=== PATIENT | female | born 2000 | race Caucasian/White ===

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

== ENCOUNTER 2021-12-07 23:38 | Inpatient (IN) | payer OTHER, BC ==
[~2021-12-07] VITALS: Ht 175.3 cm; Wt 121.6 kg
--- NOTE | 2021-12-08 07:57 | PR ---
[facility] [address] [facility] [place] [address] Signed Progress Notes IP Datetime Report Generated by CPN: 12/08/2021 07:57 PROGRESS NOTES: [id number] Procedures: Artificial ROM Plan: Continue Present Management; Anticipate Vaginal Delivery VITAL SIGNS: [id number] Vital Signs: Reviewed; Within Normal Limits EXAM: [id number] Dilatation: 3.0 Effacement: 70 Station: -2 Contractions: irregular MEMBRANES: [id number] Membranes Status: Ruptured Comments: Would like Epidural later; ordered. FETUS A: [id number] FHR Baseline: 125 Variability: Moderate 6-25bpm Accelerations: 15X15 FETUS B: [id number] Signing Physician: Mikel Saldivar MD Copies: ~ *Electronically Signed* 12/08/21 0757 MIKEL SALDIVAR MD PATIENT NAME: KEL BURNETTE PROGRESS NOTE DATE OF : 00 PHYSICIAN: MIKEL SALDIVAR MD RPT #: [id number] REPORT IS CONFIDENTIAL AND NOT TO BE RELEASED WITHOUT AUTHORIZATION
--- NOTE | 2021-12-08 15:01 | PR ---
[facility] [address] [facility] [place], [place] [address] Signed Progress Notes IP Datetime Report Generated by CPN: 12/08/2021 15:01 PROGRESS NOTES: [id number] Impression: Normal Progression of Labor Procedures: Intrauterine Pressure Catheter; Scalp Electrode Plan: Continue Present Management; Anticipate Vaginal Delivery VITAL SIGNS: [id number] Vital Signs: Reviewed; Within Normal Limits EXAM: [id number] Dilatation: 7.0 Effacement: 80 Station: -2 Contractions: irregular MEMBRANES: [id number] Membranes Status: Ruptured Comments: Comfortable with Epiidural; contractions seem to be spacing out; IUPC inserted, may need Pitocin augmentation FETUS A: [id number] FHR Baseline: 125 Variability: Moderate 6-25bpm Accelerations: 15X15 FETUS B: [id number] Signing Physician: Mikel Saldivar MD Copies: ~ *Electronically Signed* 12/08/21 1501 MIKEL SALDIVAR MD PATIENT NAME: KEL BURNETTE PROGRESS NOTE DATE OF : 00 PHYSICIAN: MIKEL SALDIVAR MD RPT #: [id number] REPORT IS CONFIDENTIAL AND NOT TO BE RELEASED WITHOUT AUTHORIZATION
--- NOTE | 2021-12-08 16:39 | PR ---
[facility] [address] [facility] [place], [place] [address] Signed Progress Notes IP Datetime Report Generated by CPN: 12/08/2021 16:39 PROGRESS NOTES: [id number] Impression: Normal Progression of Labor Other Impressions: Slow progress Procedures: Intrauterine Pressure Catheter; Scalp Electrode Plan: Continue Present Management VITAL SIGNS: [id number] Vital Signs: Reviewed; Within Normal Limits EXAM: [id number] Dilatation: 8.5 Effacement: 80 Station: -2 Contractions: irregular MEMBRANES: [id number] Membranes Status: Ruptured Comments: Several deep variable decels, tried left side, right side, looking better now in High Fowlers position. Contin ue close observation FETUS A: [id number] FHR Baseline: 125 Variability: Moderate 6-25bpm Accelerations: 15X15 FETUS B: [id number] Signing Physician: Mikel Saldivar MD Copies: ~ *Electronically Signed* 12/08/21 1639 MIKEL SALDIVAR MD PATIENT NAME: KEL BURNETTE PROGRESS NOTE DATE OF : 00 PHYSICIAN: MIKEL SALDIVAR MD RPT #: [id number] REPORT IS CONFIDENTIAL AND NOT TO BE RELEASED WITHOUT AUTHORIZATION
--- NOTE | 2021-12-08 17:10 | PR ---
[facility] [address] [facility] [place], [place] [address] Signed Progress Notes IP Datetime Report Generated by CPN: 12/08/2021 17:10 PROGRESS NOTES: [id number] Impression: Non-reassuring Heart Rate Other Impressions: Slow progress Procedures: Intrauterine Pressure Catheter; Scalp Electrode Plan: Continue Present Management VITAL SIGNS: [id number] Vital Signs: Reviewed; Within Normal Limits EXAM: [id number] Dilatation: 8.5 Effacement: 80 Station: -2 Contractions: irregular MEMBRANES: [id number] Membranes Status: Ruptured Comments: Still having decles with most contractions, but still good variability. Will try "hands-knees" position. Continue close monitoring. FETUS A: [id number] FHR Baseline: 125 Variability: Moderate 6-25bpm Accelerations: 15X15 FETUS B: [id number] Signing Physician: Mikel Saldivar MD Copies: ~ *Electronically Signed* 12/08/21 1710 MIKEL SALDIVAR MD PATIENT NAME: KEL BURNETTE PROGRESS NOTE DATE OF : 00 PHYSICIAN: MIKEL SALDIVAR MD RPT #: [id number] REPORT IS CONFIDENTIAL AND NOT TO BE RELEASED WITHOUT AUTHORIZATION
--- NOTE | 2021-12-09 11:50 | PR ---
[facility] [address] [place] [address] Signed PP Progress Notes Datetime Report Generated by CPN: 12/09/2021 11:50 SUBJECTIVE: [id number] Pain: Within Normal Limits Nausea/Vomiting: Denies Vital Signs: [id number] Vital Signs: Reviewed; Within Normal Limits EXAM: Ongoing Abdomen/Uterus: Normal Lochia: Normal Extremities: Normal Exam Comments: PP Hgb/Hct = 11.5/35.4 IMPRESSION/PLAN/PROCEDURES: [id number] Impression: Normal Progression Plan: Discharge Procedures: None Progress Notes: Doing well, without complaint, would like to go home. Signing Physician: Mikel Saldivar MD Copies: ~ *Electronically Signed* 12/09/21 1150 MIKEL SALDIVAR MD PATIENT NAME: KEL BURNETTE PROGRESS NOTE DATE OF : 00 PHYSICIAN: MIKEL SALDIVAR MD RPT #: [id number] REPORT IS CONFIDENTIAL AND NOT TO BE RELEASED WITHOUT AUTHORIZATION
== END 2021-12-09 18:20 | disposition home or self-care (01) | DRG 807 ==
LOC: FBC 12-08
PROVIDERS: ADMIT General Practice; ATTEND General Practice
PROC: 10E0XZZ Delivery of Products of Conception, External Approach (ICD-10-PCS; principal; 2021-12-08)
PROC: 10H07YZ Insertion of Other Device into Products of Conception, Via Natural or Artificial Opening (ICD-10-PCS; 2021-12-08)
PROC: 10H073Z Insertion of Monitoring Electrode into Products of Conception, Via Natural or Artificial Opening (ICD-10-PCS; 2021-12-08)
PROC: 0HQ9XZZ Repair Perineum Skin, External Approach (ICD-10-PCS; 2021-12-08)
PROC: 3E0R3BZ Introduction of Anesthetic Agent into Spinal Canal, Percutaneous Approach (ICD-10-PCS; 2021-12-08)
PROC: 00HU33Z Insertion of Infusion Device into Spinal Canal, Percutaneous Approach (ICD-10-PCS; 2021-12-08)
DX: O99.824 Streptococcus B carrier state complicating childbirth (principal); Z37.0 Single live birth; Z3A.39 39 weeks gestation of pregnancy; O77.0 Labor and delivery complicated by meconium in amniotic fluid; Z86.16 Personal history of COVID-19; O70.0 First degree perineal laceration during delivery; Z79.899 Other long term (current) drug therapy; Z87.891 Personal history of nicotine dependence
CPT/HCPCS: 01960; 36415; 85027; 86850; 86900; 86901; A9270; J2540; J2795; J3010

== ENCOUNTER 2025-09-30 14:37 | Emergency (ER) | payer OTHER ==
[~2025-09-30] VITALS: Ht 182.9 cm; Wt 112.0 kg
[2025-09-30] MEDS ORDERED: DAY TIME COLD-296 ML PO (16:04)
[2025-09-30 16:23] LABS: BLOOD/HGB, URINE NEGATIVE (Negative); KETONE, URINE NEGATIVE (Negative); LEUK ESTERASE, URINE NEGATIVE (negative); NITRITE, URINE NEGATIVE (negative)
[2025-09-30 16:28] LABS: BASOPHILS 0.3 % (0.1-1.2); EOSINOPHILS 1.9 % (0.7-5.8); LYMPHOCYTES 11.3 % (19.3-51.7); MCH 26.9 PG (25.6-32.2); MCHC 33.0 g/dL (32.2-35.5); MCV 81.6 fL (79.4-94.8); MONOCYTES 6.6 % (4.7-12.5); NEUTROPHILS 79.6 % (34.0-71.1); RBC 5.39 M/uL (3.93-5.22)
[2025-09-30] MEDS ORDERED: SODIUM CHLORIDE 0.9% 500 ML IV ONE (16:30)
[2025-09-30 16:46] LABS: ALT (SGPT) 25.0 U/L (14-59); AST (SGOT) 15.0 U/L (15-37); GLOMERULAR FILTRATION RATE,EST 99.0 mL/min (>60); PROTEIN, TOTAL 7.8 g/dL (6.4-8.2); UREA NITROGEN 15.0 mg/dL (7-18)
[2025-09-30] MEDS ORDERED: SODIUM CHLORIDE 0.9% 1,000 ML IV PRN (17:45)
[2025-09-30] MEDS ORDERED: LOPERAMIDE2 M1 PO (18:06)
[2025-09-30] MEDS ORDERED: ONDANSETRON ODT4 MG PO (18:06)
[2025-09-30 18:14] VITALS: BP 121/76
== END 2025-09-30 18:14 | disposition home or self-care (01) ==
LOC: ED 14:37
PROVIDERS: Emergency Medicine
DX: K52.9 Noninfective gastroenteritis and colitis, unspecified (principal); Z87.891 Personal history of nicotine dependence
CPT/HCPCS: 36415; 80053; 81003; 83735; 84703; 85025; 96361; 96374; 99284-25; J2405; J7040